=== PATIENT | male | born 1990 | race Caucasian/White ===

== ENCOUNTER 2020-11-16 16:45 | Emergency (ER) | payer MEDICAID ==
[2020-11-16 17:25] LABS: BASOPHILS % (AUTO) 0.4 %; EOSINOPHILS % (AUTO) 0.1 %; HCT - HEMATOCRIT 45.4 % (42.0-52.0); HGB - HEMOGLOBIN 15.1 g/dL (14.0-18.0); LYMPHOCYTES % (AUTO) 12.8 %; MEAN CORPUSCULAR HEMOGLOBIN 29.4 pg (27.0-31.0); MEAN CORPUSCULAR HGB CONC 33.3 g/dL (32.0-36.0); MEAN CORPUSCULAR VOLUME 88.5 fL (80.0-94.0); MEAN PLATELET VOLUME 8.8 fL (7.4-11.4); MONOCYTES # (AUTO) 0.6 10^3/uL (0.0-1.0); MONOCYTES % (AUTO) 7.9 %; NEUTROPHILS # (AUTO) 5.9 10^3/uL (1.5-6.6); NEUTROPHILS % (AUTO) 78.4 %; PLT - PLATELET COUNT 348 10^3/uL (130-450); RED BLOOD COUNT 5.13 10^6/uL (4.70-6.10); RED CELL DISTRIBUTION WIDTH 12.2 % (12.0-15.0); WHITE BLOOD COUNT 7.5 x10^3/uL (4.8-10.8)
[2020-11-16 17:32] LABS: INR 1.3 (0.8-1.2); PT - PROTHROMBIN TIME 14.4 secs (9.9-12.6)
[2020-11-16 17:40] LABS: GLUCOSE, URINE (UA) NEGATIVE (NEGATIVE); KETONES,URINE (UA) >=80 mg/dL (NEGATIVE); LEUKOCYTE ESTERASE, URINE NEGATIVE (NEGATIVE); NITRITE,URINE NEGATIVE (NEGATIVE); OCCULT BLOOD,URINE NEGATIVE (NEGATIVE); PROTEIN,URINE 30 mg/dL (NEGATIVE); UROBILINOGEN,URINE 1 (NORMAL) E.U./dL (NORMAL)
[2020-11-16 17:41] LABS: ALBUMIN 4.9 g/dL (3.2-5.5); ALBUMIN/GLOBULIN RATIO 1.4 (1.0-2.2); BILIRUBIN,TOTAL 1.3 mg/dL (0.2-1.0); CALCIUM 9.8 mg/dL (8.5-10.3); CREATININE 0.8 mg/dL (0.6-1.2); PARTIAL THROMBOPLASTIN TIME 30.5 secs (24.9-33.3); POTASSIUM 3.2 mmol/L (3.5-5.0); TOTAL PROTEIN 8.5 g/dL (6.7-8.2)
[2020-11-16 17:43] LABS: BILIRUBIN,URINE NEGATIVE (NEGATIVE); CLARITY,URINE CLEAR (CLEAR); ICTOTEST,URINE NEGATIVE
[2020-11-16] MEDS ORDERED: SODIUM CHLORIDE 0.9% 1,000 ML IV STA (17:46)
[2020-11-16 17:52] LABS: BACTERIA,URINE None Seen /HPF (None Seen); RBC,URINE 0-5 /HPF (0-5); SQUAMOUS EPITHELIAL CELL,UR NONE SEEN (<= Few); WBC,URINE 0-3 /HPF (0-3)
[2020-11-16] MEDS ORDERED: PANTOPRAZOLE 40 MG VIAL IVP STA (18:00)
[2020-11-16] MEDS ORDERED: DROPERIDOL 5 MG/2 ML VIAL IVP STA (18:00)
--- NOTE | 2020-11-16 18:07 | ED Physician Documentation ---
History of Present Illness - Stated complaint Stated Complaint: VOMITING - Chief complaint Chief Complaint: Abd Pain - History obtained from History obtained from: Patient - History of Present Illness Timing: Today Pain level max: 0 Pain level now: 0 - Additonal information Additional information: Patient is a 30-year-old male who is brought into the emergency department today for vomiting. He states this is been ongoing for several years. It is related to cannabinoid induced hyperemesis. Patient states that he quit smoking for a while and the symptoms resolved, however he began to use marijuana again and the vomiting has recurred. He states he also used to be a heavy alcoholic drinking 1/5 of vodka or more per night, now is down to a sixpack of beer or less per night. Had an EGD about 6 months ago that did not show any varices. He states that there was bright red blood in the vomit today, he states more than usual. No lightheadedness. No dizziness. Is not interested in going to rehab or detox tonight. Review of Systems Ten Systems: 10 systems reviewed and negative Constitutional: denies: Fever, Myalgias Respiratory: denies: Cough GI: reports: Nausea, Vomiting. denies: Diarrhea, Bloody / black stool Musculoskeletal: denies: Neck pain, Back pain PD PAST MEDICAL HISTORY - Past Medical History Past Medical History: Yes GI: Pancreatitis - Present Medications Home Medications: Ambulatory Orders Medication Instructions Recorded Confirmed Esomeprazole Magnesium [Nexium] 40 mg PO DAILY #30 cap 11/16/20 Insulin NPH Human Isophane 10 unit SUBQ BID 11/16/20 11/16/20 [Humulin N Kwikpen] Lipase/Protease/Amylase [Manoj Christine 3 cap ORAL TID 11/16/20 11/16/20 36,000 Units Capsule] Ondansetron Odt [Zofran] 4 mg TL Q6H PRN #10 tablet 11/16/20 - Allergies Allergies/Adverse Reactions: Allergies Allergy/AdvReac Type Severity Reaction Status Date / Time Sulfa (Sulfonamide Allergy Unknown Verified 11/16/20 16:59 Antibiotics) - Living Situation Living Arrangement: reports: At home - Social History Does the pt drink ETOH?: Yes ETOH Use: Beer Does the pt have substance abuse?: Yes Substance Use and Type: Marijuana - Family History Family history: reports: Non contributory PD ED PE NORMAL - Vitals Vital signs reviewed: Yes - General General: Alert and oriented X 3, No acute distress - HEENT HEENT: Moist mucous membranes - Neck Neck: Supple, no meningeal sign - Cardiac Cardiac: RRR - Respiratory Respiratory: No respiratory distress, Clear bilaterally - Abdomen Abdomen: Soft, Non tender, Non distended - Derm Derm: Warm and dry - Extremities Extremities: No edema, No calf tenderness / cord - Neuro Neuro: Alert and oriented X 3 - Psych Psych: Normal mood, Normal affect Results - Vitals Vitals: Vital Signs - 24 hr 11/16/20 17:00 Temperature 37.1 C Heart Rate 89 Respiratory 18 Rate Blood Pressure 139/90 H O2 Saturation 100 Oxygen O2 Source Room air - Labs Labs: Laboratory Tests 11/16/20 11/16/20 11/16/20 17:16 17:16 17:16 WBC 7.5 RBC 5.13 Hgb 15.1 Hct 45.4 MCV 88.5 MCH 29.4 MCHC 33.3 RDW 12.2 Plt Count 348 MPV 8.8 Neut # (Auto) 5.9 Lymph # (Auto) 1.0 L [place] # (Auto) 0.6 Eos # (Auto) 0.0 Baso # (Auto) 0.0 Absolute Nucleated RBC 0.00 Nucleated RBC % 0.0 PT INR APTT Sodium 139 Potassium 3.2 L Chloride 97 L Carbon Dioxide 28 Anion Gap 14.0 H BUN 10 Creatinine 0.8 Estimated GFR (MDRD) 113 Glucose 150 H Calcium 9.8 Total Bilirubin 1.3 H AST 19 ALT 23 Alkaline Phosphatase 54 Total Protein 8.5 H Albumin 4.9 Globulin 3.6 Albumin/Globulin Ratio 1.4 Lipase 19 L Urine Color Urine Clarity Urine pH Ur Specific [place] Urine Protein Urine Glucose (UA) Urine Ketones Urine Occult Blood Urine Nitrite Urine Bilirubin Urine Urobilinogen Ur Leukocyte Esterase Urine RBC Urine WBC Ur Squamous Epith Cells Urine Bacteria Ur Microscopic Review Urine Culture Comments Blood Type A POSITIVE Antibody Screen NEGATIVE 11/16/20 11/16/20 17:16 17:33 WBC RBC Hgb Hct MCV MCH MCHC RDW Plt Count MPV Neut # (Auto) Lymph # (Auto) [place] # (Auto) Eos # (Auto) Baso # (Auto) Absolute Nucleated RBC Nucleated RBC % PT 14.4 H INR 1.3 H APTT 30.5 Sodium Potassium Chloride Carbon Dioxide Anion Gap BUN Creatinine Estimated GFR (MDRD) Glucose Calcium Total Bilirubin AST ALT Alkaline Phosphatase Total Protein Albumin Globulin Albumin/Globulin Ratio Lipase Urine Color YELLOW Urine Clarity CLEAR Urine pH 6.0 Ur Specific [place] >=1.030 H Urine Protein 30 H Urine Glucose (UA) NEGATIVE Urine Ketones >=80 H Urine Occult Blood NEGATIVE Urine Nitrite NEGATIVE Urine Bilirubin NEGATIVE Urine Urobilinogen 1 (NORMAL) Ur Leukocyte Esterase NEGATIVE Urine RBC 0-5 Urine WBC 0-3 Ur Squamous Epith Cells NONE SEEN Urine Bacteria None Seen Ur Microscopic Review INDICATED Urine Culture Comments NOT INDICATED Blood Type Antibody Screen PD MEDICAL DECISION MAKING - ED course Complexity details: reviewed results, re-evaluated patient, considered differential, d/w patient ED course: Patient with what appears to be cannabinoid induced hyperemesis. Chronic ongoing issue for the patient. Had a recent EGD without evidence of varices. No further vomiting or bleeding here. Hemoglobin is 15. We will place the patient on antiemetics and Nexium for home. He was given Protonix, droperidol and IV fluids here. Abdomen is soft, nontender nondistended on serial exam. Patient counseled regarding signs and symptoms for which I believe and urgent re-evaluation would be necessary. Patient with good understanding of and agreement to plan and is comfortable going home at this time This document was made in part using voice recognition software. While efforts are made to proofread this document, sound alike and grammatical errors may occur. Departure - Departure Disposition: 01 Home, Self Care Clinical Impression: Cannabinoid hyperemesis syndrome, Dehydration Hematemesis Qualifiers: Nausea presence: with nausea Qualified Code(s): K92.0 - Hematemesis Condition: Good Instructions: ED Dehydration, ED Nausea Vomiting Follow-Up: your,doctor in 1 week [Other] Prescriptions: Esomeprazole Magnesium [Nexium] 40 mg PO DAILY #30 cap Ondansetron Odt [Zofran] 4 mg TL Q6H PRN #10 tablet PRN Reason: Nausea / Vomiting Comments: Follow-up with your doctor for further care. Return if you worsen. Please avoid alcohol and marijuana. Drink plenty of water.
[2020-11-16] MEDS ORDERED: MAG HYDROX/AL HYDROX/SIMETH 30 ML UDC PO STA (18:33)
[2020-11-16 18:53] VITALS: BP 132/86
== END 2020-11-16 19:00 | disposition home or self-care (01) ==
LOC: ED 16:45
DX: R11.2 Nausea with vomiting, unspecified (principal); F12.90 Cannabis use, unspecified, uncomplicated; E86.0 Dehydration
CPT/HCPCS: 36415; 80053; 81001; 83690; 85025; 85610; 85730; 86850; 86900; 86901; 96361; 96374; 96375; 99283; 99284; A9270; 81003; 87086

== ENCOUNTER 2020-11-19 08:28 | Emergency (ER) | payer MEDICAID ==
[2020-11-19 08:57] LABS: BASOPHILS % (AUTO) 0.4 %; EOSINOPHILS # (AUTO) 0.1 10^3/uL (0.0-0.7); EOSINOPHILS % (AUTO) 1.1 %; HCT - HEMATOCRIT 46.9 % (42.0-52.0); LYMPHOCYTES # (AUTO) 1.2 10^3/uL (1.5-3.5); LYMPHOCYTES % (AUTO) 21.8 %; MEAN CORPUSCULAR HEMOGLOBIN 29.4 pg (27.0-31.0); MEAN CORPUSCULAR HGB CONC 34.1 g/dL (32.0-36.0); MEAN CORPUSCULAR VOLUME 86.1 fL (80.0-94.0); MEAN PLATELET VOLUME 8.5 fL (7.4-11.4); MONOCYTES # (AUTO) 0.5 10^3/uL (0.0-1.0); NEUTROPHILS # (AUTO) 3.8 10^3/uL (1.5-6.6); NEUTROPHILS % (AUTO) 67.5 %; PLT - PLATELET COUNT 330 10^3/uL (130-450); RED BLOOD COUNT 5.45 10^6/uL (4.70-6.10); RED CELL DISTRIBUTION WIDTH 11.9 % (12.0-15.0); WHITE BLOOD COUNT 5.6 x10^3/uL (4.8-10.8)
[2020-11-19 09:10] LABS: ALBUMIN 4.9 g/dL (3.2-5.5); ALBUMIN/GLOBULIN RATIO 1.4 (1.0-2.2); BILIRUBIN,TOTAL 1.4 mg/dL (0.2-1.0); CALCIUM 9.5 mg/dL (8.5-10.3); CREATININE 0.9 mg/dL (0.6-1.2); POTASSIUM 3.2 mmol/L (3.5-5.0); TOTAL PROTEIN 8.3 g/dL (6.7-8.2)
[2020-11-19] MEDS ORDERED: DROPERIDOL 5 MG/2 ML VIAL IVP STA (09:32)
[2020-11-19] MEDS ORDERED: SODIUM CHLORIDE 0.9% 1,000 ML IV STA (09:32)
--- NOTE | 2020-11-19 09:34 | ED Physician Documentation ---
History of Present Illness - Stated complaint Stated Complaint: CONSTAPATION - Chief complaint Chief Complaint: Abd Pain - History obtained from History obtained from: Patient - Additonal information Additional information: Patient comes emergency department chief complaint of ongoing nausea and vomiting with decreased stool output and no flatus for the last 2 days. Patient denies any surgical history. He has a history of diabetes and of heavy cannabis use and has been told in the past that his vomiting episodes are likely due to 1 or the other of these. Patient states that he has been taking Zofran at home for the last 3 days and also omeprazole. He has not tried any stool softeners. Patient states that he has had gastrointestinal issues for the last year and a half since Covid began and was seen a GI specialist for a while. However, he states nobody has been able to completely give him an answer as to all of his issues. Patient denies any other complaints at this time. No personal history of bowel obstruction. He denies any blood in stool or vomit. He states he is feeling a little better yesterday and was actually able to have some applesauce, but today, his nausea and vomiting seem worse again. No other complaints at this time. Review of Systems Ten Systems: 10 systems reviewed and negative Constitutional: reports: Reviewed and negative Eyes: reports: Reviewed and negative Ears: reports: Reviewed and negative Nose: reports: Reviewed and negative Throat: reports: Reviewed and negative Cardiac: reports: Reviewed and negative Respiratory: reports: Reviewed and negative GI: reports: Abdominal Pain, Nausea, Vomiting, Constipation : reports: Reviewed and negative Skin: reports: Reviewed and negative Musculoskeletal: reports: Reviewed and negative Neurologic: reports: Reviewed and negative Psychiatric: reports: Reviewed and negative Endocrine: reports: Reviewed and negative Immunocompromised: reports: Reviewed and negative PD PAST MEDICAL HISTORY - Past Medical History Past Medical History: Yes Cardiovascular: None Respiratory: Asthma Neuro: Peripheral neuropathy Endocrine/Autoimmune: Type 2 diabetes GI: Pancreatitis : None HEENT: None Psych: None Musculoskeletal: Scoliosis Derm: None - Past Surgical History Past Surgical History: No - Present Medications Home Medications: Ambulatory Orders Medication Instructions Recorded Confirmed Esomeprazole Magnesium [Nexium] 40 mg PO DAILY #30 cap 11/16/20 11/19/20 Insulin NPH Human Isophane 10 unit SUBQ BID 11/16/20 11/19/20 [Humulin N Kwikpen] Lipase/Protease/Amylase [Manoj Christine 3 cap ORAL TID 11/16/20 11/19/20 36,000 Units Capsule] Ondansetron Odt [Zofran] 4 mg TL Q6H PRN #10 tablet 11/16/20 11/19/20 Docusate Sodium 100Mg Capsule 200 mg PO DAILY PRN #12 11/19/20 [Colace 100Mg Capsule] Promethazine Supp [Phenergan Supp] 25 mg [place] BID PRN #20 supp 11/19/20 - Allergies Allergies/Adverse Reactions: Allergies Allergy/AdvReac Type Severity Reaction Status Date / Time Sulfa (Sulfonamide Allergy Unknown Verified 11/19/20 08:34 Antibiotics) - Social History Does the pt smoke?: No Smoking Status: Former smoker Does the pt drink ETOH?: Yes Does the pt have substance abuse?: Yes Substance Use and Type: Marijuana - Immunizations Immunizations are current?: No Immunizations: TDAP >10years/unknown PD ED PE NORMAL - Vitals Vital signs reviewed: Yes - General General: Alert and oriented X 3, Other (Patient appears uncomfortable but otherwise no apparent distress) - HEENT HEENT: Atraumatic, PERRL, EOMI, Moist mucous membranes - Neck Neck: Supple, no meningeal sign - Cardiac Cardiac: RRR, No murmur - Respiratory Respiratory: No respiratory distress, Clear bilaterally - Abdomen Abdomen: Soft, Non distended, Other (Mild diffuse tenderness) - Derm Derm: Normal color, Warm and dry, No rash - Extremities Extremities: No deformity, No edema, No calf tenderness / cord - Neuro Neuro: Alert and oriented X 3 - Psych Psych: Normal mood, Normal affect Results - Vitals Vitals: Vital Signs - 24 hr 11/19/20 11/19/20 11/19/20 08:35 09:03 11:08 Temperature 36.4 C L 37.1 C Heart Rate 88 65 93 Respiratory 22 14 20 Rate Blood Pressure 146/109 H 143/100 H 122/93 H O2 Saturation 100 100 99 Oxygen O2 Source Room air - Labs Labs: Laboratory Tests 11/19/20 11/19/20 08:50 08:50 WBC 5.6 RBC 5.45 Hgb 16.0 Hct 46.9 MCV 86.1 MCH 29.4 MCHC 34.1 RDW 11.9 L Plt Count 330 MPV 8.5 Neut # (Auto) 3.8 Lymph # (Auto) 1.2 L [place] # (Auto) 0.5 Eos # (Auto) 0.1 Baso # (Auto) 0.0 Absolute Nucleated RBC 0.00 Nucleated RBC % 0.0 Sodium 139 Potassium 3.2 L Chloride 97 L Carbon Dioxide 28 Anion Gap 14.0 H BUN 11 Creatinine 0.9 Estimated GFR (MDRD) 98 Glucose 148 H Calcium 9.5 Total Bilirubin 1.4 H AST 20 ALT 23 Alkaline Phosphatase 51 Total Protein 8.3 H Albumin 4.9 Globulin 3.4 Albumin/Globulin Ratio 1.4 Lipase 19 L - Rads (name of study) CT abd/pelvis Radiology: Final report received, EMP read indepedently, See rad report PD MEDICAL DECISION MAKING - ED course Complexity details: reviewed results, re-evaluated patient, considered differential, d/w patient ED course: Patient was treated symptomatically with IV fluids, droperidol, and ultimately potassium as his potassium was slightly low at 3.2. CT scan of the abdomen pelvis with contrast was ordered And found to be negative. Patient was given supplemental potassium in the emergency department and results were discussed with him. I have advised him to quit smoking marijuana to help prevent these episodes of vomiting. We have discussed the need for follow-up and the usual indications for return. Departure - Departure Disposition: 01 Home, Self Care Clinical Impression: Cyclical vomiting syndrome, Cannabis hyperemesis syndrome concurrent with and due to cannabis abuse Condition: Stable Instructions: ED Nausea Vomiting Prescriptions: Docusate Sodium 100Mg Capsule [Colace 100Mg Capsule] 200 mg PO DAILY PRN #12 PRN Reason: Constipation Promethazine Supp [Phenergan Supp] 25 mg LA BID PRN #20 supp PRN Reason: Nausea / Vomiting Comments: Your CT scan does not show any evidence of bowel obstruction or constipation. Most likely, you have not had much of a bowel movement for days because you have not really been eating. You may use the Zofran and the rectal suppositories of Phenergan to help with your nausea. They may be used together because they are unrelated. Since the Zofran has a bit of a constipating side effect, you may use the Colace for stool softening as needed. Please take sips of clear liquids throughout the day to help keep yourself hydrated. We have given you a large bag of IV fluids while you have been here, and you should continue to take the clear liquids orally at home. 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 Please also consider stopping the use of the cannabis, as this is known to have the side effect of chronic, severe vomiting episodes. Discharge Date/Time: 11/19/20 11:38
[2020-11-19] MEDS ORDERED: IOPAMIDOL-300 100 ML VIAL ONE (09:37)
[2020-11-19] MEDS ORDERED: IOPAMIDOL-300 100 ML VIAL IVP ONE (10:20)
--- NOTE | 2020-11-19 10:42 | CT Report ---
PROCEDURE: Abdomen/Pelvis W INDICATIONS: vomiting/no BM or gas CONTRAST: IV CONTRAST: Optiray 320 ml: 100 PO CONTRAST: *NO PO CONTRAST TECHNIQUE: After the administration of intravenous contrast, 5 mm thick sections acquired from the diaphragms to the symphysis. 5 mm thick coronal and sagittal reformats were acquired. For radiation dose reducti on, the following was used: automated exposure control, adjustment of mA and/or kV according to gustabo ent size. COMPARISON: None. FINDINGS: Image quality: Excellent. ABDOMEN: Lung bases: Lung bases are clear. Heart size is normal. Solid organs: Evaluation of the liver demonstrates no focal hepatic lesions. Gallbladder appears wit hin normal limits without calcified gallstones. Biliary system is non dilated. The spleen is normal in size. Pancreas enhances normally without peripancreatic fat stranding or fluid collections. No ad renal nodules. Kidneys demonstrate no hydronephrosis. Peritoneum and bowel: Stomach and small loops demonstrate normal wall thickness and caliber. The mihir endix is normal in appearance. There are a few colonic diverticula without acute diverticulitis. Ther e is mild segmental wall thickening in the sigmoid colon which may reflect a mild colitis or artifact from nondistention. No free fluid or air. Nodes and vessels: No retroperitoneal or mesenteric adenopathy by size criteria. Aorta and inferior vena cava are normal in size. Miscellaneous: No ventral hernias. PELVIS: Genitourinary: Bladder wall thickness is normal. Miscellaneous: No inguinal hernias or adenopathy. Bones: No suspicious bony lesions. No vertebral body compression fractures. IMPRESSION: 1. No evidence of bowel obstruction. 2. Mild segmental wall thickening in the sigmoid colon may reflect a mild colitis or artifact from no ndistention. Reviewed by: Iain Gonzáles MD on 11/19/2020 10:40 AM PDT Approved by: Iain Gonzáles MD on 11/19/2020 10:40 AM PDT Station ID: [id number]
[2020-11-19 11:09] VITALS: BP 122/93
== END 2020-11-19 11:38 | disposition home or self-care (01) ==
LOC: ED 08:28
DX: R11.15 Cyclical vomiting syndrome unrelated to migraine (principal); F12.10 Cannabis abuse, uncomplicated; E11.42 Type 2 diabetes mellitus with diabetic polyneuropathy; Z79.4 Long term (current) use of insulin; Z87.891 Personal history of nicotine dependence
CPT/HCPCS: 36415; 74177; 80053; 83690; 85025; 96374; 99284; Q9967

== ENCOUNTER 2020-11-26 13:04 | Emergency (ER) | payer MEDICAID ==
[2020-11-26 13:33] LABS: BASOPHILS % (AUTO) 0.4 %; EOSINOPHILS % (AUTO) 0.4 %; HCT - HEMATOCRIT 49.9 % (42.0-52.0); HGB - HEMOGLOBIN 17.7 g/dL (14.0-18.0); LYMPHOCYTES # (AUTO) 1.8 10^3/uL (1.5-3.5); LYMPHOCYTES % (AUTO) 25.3 %; MEAN CORPUSCULAR HEMOGLOBIN 29.7 pg (27.0-31.0); MEAN CORPUSCULAR HGB CONC 35.5 g/dL (32.0-36.0); MEAN CORPUSCULAR VOLUME 83.7 fL (80.0-94.0); MEAN PLATELET VOLUME 8.6 fL (7.4-11.4); MONOCYTES % (AUTO) 13.1 %; NEUTROPHILS # (AUTO) 4.4 10^3/uL (1.5-6.6); NEUTROPHILS % (AUTO) 60.5 %; PLT - PLATELET COUNT 409 10^3/uL (130-450); RED BLOOD COUNT 5.96 10^6/uL (4.70-6.10); WHITE BLOOD COUNT 7.3 x10^3/uL (4.8-10.8)
[2020-11-26 13:55] LABS: ALBUMIN 5.8 g/dL (3.2-5.5); ALBUMIN/GLOBULIN RATIO 1.8 (1.0-2.2); BILIRUBIN,TOTAL 2.6 mg/dL (0.2-1.0); CALCIUM 10.1 mg/dL (8.5-10.3); CREATININE 1.2 mg/dL (0.6-1.2)
[2020-11-26 15:47] LABS: GLUCOSE, URINE (UA) NEGATIVE (NEGATIVE); KETONES,URINE (UA) >=80 mg/dL (NEGATIVE); LEUKOCYTE ESTERASE, URINE NEGATIVE (NEGATIVE); NITRITE,URINE NEGATIVE (NEGATIVE); OCCULT BLOOD,URINE NEGATIVE (NEGATIVE); PROTEIN,URINE 100 mg/dL (NEGATIVE); UROBILINOGEN,URINE 0.2 (NORMAL) E.U./dL (NORMAL)
[2020-11-26 15:51] LABS: BILIRUBIN,URINE NEGATIVE (NEGATIVE); CLARITY,URINE CLEAR (CLEAR); ICTOTEST,URINE NEGATIVE
[2020-11-26 15:52] LABS: BACTERIA,URINE None Seen /HPF (None Seen); MUCUS,URINE Few Strands; RBC,URINE None Seen /HPF (0-5); SQUAMOUS EPITHELIAL CELL,UR NONE SEEN (<= Few); WBC,URINE 0-3 /HPF (0-3)
[2020-11-26] MEDS ORDERED: HALOPERIDOL 5 MG/ML VIAL IM STA (15:57)
--- NOTE | 2020-11-26 15:57 | ED Physician Documentation ---
PD HPI ABD PAIN - Stated complaint Stated Complaint: ABD PX, N/V - Chief complaint Chief Complaint: Abd Pain - History obtained from History obtained from: Patient, Family - Additional information Additional information: 30-year-old gentleman with history of cannabinoid hyperemesis syndrome. He has had it in the past. He also has a history of pancreatic enzyme deficiency. Third visit recently for this. Seen on the and 19 November. Last marijuana use was [address] Had a [address] on the second visit showing potential colitis. Labs notable for relatively normal CBCs, CMP's with low potassiums and increasing bilirubins. He is pain-free right now because he just vomited. States he has been vomiting which helps with the pain. Review of Systems Ten Systems: 10 systems reviewed and negative Constitutional: reports: Reviewed and negative Throat: reports: Dental pain / toothache Cardiac: reports: Reviewed and negative Respiratory: reports: Reviewed and negative PD PAST MEDICAL HISTORY - Past Medical History Past Medical History: Yes Cardiovascular: None Respiratory: Asthma Neuro: Peripheral neuropathy Endocrine/Autoimmune: Type 2 diabetes GI: Pancreatitis : None HEENT: None Psych: None Musculoskeletal: Scoliosis Derm: None - Past Surgical History Past Surgical History: No - Present Medications Home Medications: Ambulatory Orders Medication Instructions Recorded Confirmed Esomeprazole Magnesium [Nexium] 40 mg PO DAILY #30 cap 11/16/20 11/19/20 Insulin NPH Human Isophane 10 unit SUBQ BID 11/16/20 11/19/20 [Humulin N Kwikpen] Lipase/Protease/Amylase [Manoj Christine 3 cap ORAL TID 11/16/20 11/19/20 36,000 Units Capsule] Ondansetron Odt [Zofran] 4 mg TL Q6H PRN #10 tablet 11/16/20 11/19/20 Docusate Sodium 100Mg Capsule 200 mg PO DAILY PRN #12 11/19/20 [Colace 100Mg Capsule] Promethazine Supp [Phenergan Supp] 25 mg [place] BID PRN #20 supp 11/19/20 haloperidoL [Haloperidol] 0.5 tab PO Q8H PRN #10 tablet 11/26/20 - Allergies Allergies/Adverse Reactions: Allergies Allergy/AdvReac Type Severity Reaction Status Date / Time Sulfa (Sulfonamide Allergy Unknown Verified 11/26/20 13:12 Antibiotics) - Social History Does the pt smoke?: No Smoking Status: Never smoker Does the pt drink ETOH?: Yes Does the pt have substance abuse?: Yes Substance Use and Type: Marijuana - Immunizations Immunizations are current?: No Immunizations: TDAP >10years/unknown PD ED PE NORMAL - Vitals Vital signs reviewed: Yes - General General: Alert and oriented X 3, Other (Appears uncomfortable and hiccuping) - HEENT HEENT: PERRL, EOMI - Neck Neck: Supple, no meningeal sign, No bony TTP - Cardiac Cardiac: RRR, No murmur - Respiratory Respiratory: No respiratory distress, Clear bilaterally - Abdomen Abdomen: Normal bowel sounds, Soft, Non tender - Back Back: No CVA TTP, No spinal TTP - Derm Derm: Normal color, Warm and dry - Neuro Neuro: Alert and oriented X 3, Normal speech Results - Vitals Vitals: Vital Signs - 24 hr 11/26/20 11/26/20 11/26/20 13:12 16:00 18:00 Temperature 36.5 C 36.5 C 36.6 C Heart Rate 100 86 83 Respiratory 16 18 18 Rate Blood Pressure 130/98 H 157/106 H 145/105 H O2 Saturation 98 99 100 Oxygen O2 Source Room air - Labs Labs: Laboratory Tests 11/26/20 11/26/20 11/26/20 13:29 13:29 15:42 WBC 7.3 RBC 5.96 Hgb 17.7 Hct 49.9 MCV 83.7 MCH 29.7 MCHC 35.5 RDW 12.0 Plt Count 409 MPV 8.6 Neut # (Auto) 4.4 Lymph # (Auto) 1.8 [place] # (Auto) 1.0 Eos # (Auto) 0.0 Baso # (Auto) 0.0 Absolute Nucleated RBC 0.00 Nucleated RBC % 0.0 Sodium 133 L Potassium 3.0 L Chloride 85 L Carbon Dioxide 26 Anion Gap 22.0 H BUN 18 Creatinine 1.2 Estimated GFR (MDRD) 71 L Glucose 165 H Calcium 10.1 Total Bilirubin 2.6 H AST 20 ALT 23 Alkaline Phosphatase 57 Total Protein 9.0 H Albumin 5.8 H Globulin 3.2 Albumin/Globulin Ratio 1.8 Lipase 22 Urine Color YELLOW Urine Clarity CLEAR Urine pH 6.0 Ur Specific [place] >=1.030 H Urine Protein 100 H Urine Glucose (UA) NEGATIVE Urine Ketones >=80 H Urine Occult Blood NEGATIVE Urine Nitrite NEGATIVE Urine Bilirubin NEGATIVE Urine Urobilinogen 0.2 (NORMAL) Ur Leukocyte Esterase NEGATIVE Urine RBC None Seen Urine WBC 0-3 Ur Squamous Epith Cells NONE SEEN Urine Bacteria None Seen Urine Mucus Few Strands Ur Microscopic Review INDICATED Urine Culture Comments NOT INDICATED PD MEDICAL DECISION MAKING - ED course ED course: 30yo male with CHS. Returns for same. Benign belly. Note made labs, low potassium, given PO KCl, and increasing bili. RUQ sono done: sludge, 2 v small polyps, no stones or cholecystitis. Better and passed PO challenge p meds. Departure - Departure Disposition: Home, Self Care Clinical Impression: Cannabinoid hyperemesis syndrome Condition: Good Record reviewed to determine appropriate education?: Yes Instructions: ED Nausea Vomiting Follow-Up: NOAH LINN PA-C [Provider Admit Priv/Credential] - BRIANNA NEUMANN ARNP [Physician No Access] - [facility] [Provider Group] [facility] [place] [Provider Group] Prescriptions: haloperidoL [Haloperidol] 0.5 tab PO Q8H PRN #10 tablet PRN Reason: Nausea / Vomiting Comments: You do have modestly elevated liver enzymes, you do have some sludge in your gallbladder. That may be related. Nothing that would suggest you need your gallbladder addressed urgently. Route return for new or worsening symptoms. You will need follow-up with primary care, Some options are listed on this form. Also for endocrinology the, the closest is in [place], the phone number is [phone]. Discharge Date/Time: 11/26/20 18:41
[2020-11-26] MEDS ORDERED: POTASSIUM CHLORIDE 20 MEQ TABLET PO STA (16:42)
[2020-11-26] MEDS ORDERED: MAG HYDROX/AL HYDROX/SIMETH 30 ML UDC PO STA (18:25)
[2020-11-26 18:32] VITALS: BP 145/105
--- NOTE | 2020-11-26 19:16 | Ultrasound Report ---
PROCEDURE: Abdomen Limited INDICATIONS: abd pain, increase liver enzymes TECHNIQUE: Real-time focused scanning was performed of the abdomen, with image documentation. COMPARISON: None FINDINGS: Liver: The liver measures 14.8 cm in length. Echotexture is normal. A possible echogenic focus in the left lobe of the liver is likely a hemangioma measuring 14 x 9 x 7 mm. Gallbladder: There is sludge. 2 small nonmobile echogenic foci are seen, possibly small polyps. Biliary tree: Common bile duct measures 3.9 mm Pancreas: Not well seen. Right kidney: 11.2 cm in length. No hydronephrosis. IMPRESSION: 1. Gallbladder sludge. 2. 2 benign-appearing gallbladder polyps. 3. Hepatic hemangioma. 4. No acute abnormality. Reviewed by: Eddy Mcdaniel on 11/26/2020 7:15 PM PDT Approved by: Eddy Mcdaniel on 11/26/2020 7:15 PM PDT Station ID: [id number]
== END 2020-11-26 18:41 | disposition home or self-care (01) ==
LOC: ED 13:04
DX: R11.10 Vomiting, unspecified (principal); E11.42 Type 2 diabetes mellitus with diabetic polyneuropathy; Z79.4 Long term (current) use of insulin
CPT/HCPCS: 36415; 76705; 80053; 81001; 83690; 85025; 96372; 99283; 99284; A9270; 81003; 87086

== ENCOUNTER 2021-03-16 08:00 | Outpatient (CLI) | payer MEDICAID ==
--- NOTE | 2021-03-16 17:49 | XRAY Report ---
PROCEDURE: Ankle 3 View LT INDICATIONS: ANKLE PAIN, LEFT TECHNIQUE: 3 views of the ankle were acquired. COMPARISON: None FINDINGS: Bones: No fractures or dislocations. Ankle mortise is normally aligned. No suspicious bony lesions . The talar dome demonstrates an unremarkable appearance. Soft tissues: No tibiotalar joint effusion. Achilles tendon appears normal. Calcification can be s een of the distal arteries, which is commonly observed in patients with long-standing diabetes, which is consistent with the known history. IMPRESSION: No acute plain film abnormality is seen. Reviewed by: Regis Cheatham MD on 03/16/2021 4:47 PM [facility] Approved by: Regis Cheatham MD on 03/16/2021 4:47 PM [facility] Station ID: [id number]
== END 2021-03-16 23:59 | disposition home or self-care (01) ==
LOC: DI.S 08:00
PROVIDERS: ATTEND Physician Assistant Medical
DX: M25.572 Pain in left ankle and joints of left foot (principal)

== ENCOUNTER 2021-05-11 11:17 | Outpatient (CLI) | payer MEDICAID ==
[2021-05-11 15:43] LABS: BASOPHILS % (AUTO) 0.4 %; EOSINOPHILS # (AUTO) 0.2 10^3/uL (0.0-0.7); EOSINOPHILS % (AUTO) 3.8 %; HCT - HEMATOCRIT 45.3 % (42.0-52.0); HGB - HEMOGLOBIN 15.4 g/dL (14.0-18.0); LYMPHOCYTES # (AUTO) 1.5 10^3/uL (1.5-3.5); LYMPHOCYTES % (AUTO) 31.6 %; MEAN CORPUSCULAR HEMOGLOBIN 29.1 pg (27.0-31.0); MEAN CORPUSCULAR VOLUME 85.6 fL (80.0-94.0); MEAN PLATELET VOLUME 9.3 fL (7.4-11.4); MONOCYTES # (AUTO) 0.5 10^3/uL (0.0-1.0); MONOCYTES % (AUTO) 9.5 %; NEUTROPHILS # (AUTO) 2.6 10^3/uL (1.5-6.6); NEUTROPHILS % (AUTO) 54.5 %; PLT - PLATELET COUNT 370 10^3/uL (130-450); RED BLOOD COUNT 5.29 10^6/uL (4.70-6.10); RED CELL DISTRIBUTION WIDTH 12.3 % (12.0-15.0); WHITE BLOOD COUNT 4.7 x10^3/uL (4.8-10.8)
[2021-05-11 15:59] LABS: ALBUMIN 4.5 g/dL (3.2-5.5); ALBUMIN/GLOBULIN RATIO 1.2 (1.0-2.2); ALKALINE PHOSPHATASE 66 IU/L (42-121); ALT ALANINE AMINOTRANSFERASE 28 IU/L (10-60); AST ASPARTATE AMINOTRANSFERASE 22 IU/L (10-42); BILIRUBIN,TOTAL 0.7 mg/dL (0.2-1.0); BUN - BLOOD UREA NITROGEN 15 mg/dL (6-20); CALCIUM 9.4 mg/dL (8.5-10.3); CARBON DIOXIDE - CO2 26 mmol/L (21-32); CHLORIDE 103 mmol/L (101-111); CHOLESTEROL 173 mg/dL; CREATININE 0.7 mg/dL (0.6-1.2); GFR - MDRD 131 (>89); GLUCOSE 197 mg/dL (70-100); HDL CHOLESTEROL 43 mg/dL; LDL CHOLESTEROL,CALCULATED 118 mg/dL; LDL/HDL RATIO 2.7 (<3.6); SODIUM 138 mmol/L (135-145); TOTAL PROTEIN 8.4 g/dL (6.7-8.2); TRIGLYCERIDES 59 mg/dL; VLDL CHOLESTEROL 12 mg/dL
[2021-05-11 21:04] LABS: ESTIMATED AVERAGE GLUCOSE 192 mg/dL (70-100); HEMOGLOBIN A1c% 8.3 % (4.27-6.07)
== END 2021-05-11 11:18 | disposition home or self-care (01) ==
LOC: LAB.S 11:17
PROVIDERS: ATTEND Internal Medicine
DX: E11.9 Type 2 diabetes mellitus without complications (principal)
CPT/HCPCS: 36415; 80053; 80061; 83036; 83721; 85025

== ENCOUNTER 2022-04-01 11:44 | Outpatient (CLI) | payer MEDICAID ==
[2022-04-01 14:41] LABS: BASOPHILS % (AUTO) 0.7 %; EOSINOPHILS # (AUTO) 0.2 10^3/uL (0.0-0.7); EOSINOPHILS % (AUTO) 3.7 %; LYMPHOCYTES # (AUTO) 1.7 10^3/uL (1.5-3.5); LYMPHOCYTES % (AUTO) 27.9 %; MEAN CORPUSCULAR HEMOGLOBIN 28.9 pg (27.0-31.0); MEAN CORPUSCULAR HGB CONC 32.7 g/dL (32.0-36.0); MEAN CORPUSCULAR VOLUME 88.4 fL (80.0-94.0); MEAN PLATELET VOLUME 9.5 fL (7.4-11.4); MONOCYTES # (AUTO) 0.6 10^3/uL (0.0-1.0); MONOCYTES % (AUTO) 10.1 %; NEUTROPHILS # (AUTO) 3.5 10^3/uL (1.5-6.6); NEUTROPHILS % (AUTO) 57.3 %; PLT - PLATELET COUNT 338 10^3/uL (130-450); RED BLOOD COUNT 5.54 10^6/uL (4.70-6.10)
[2022-04-01 15:18] LABS: CALCIUM 9.3 mg/dL (8.5-10.3); CREATININE 0.9 mg/dL (0.6-1.2); POTASSIUM 4.7 mmol/L (3.5-5.0)
[2022-04-01 19:46] LABS: ESTIMATED AVERAGE GLUCOSE 243 mg/dL (70-100); HEMOGLOBIN A1c% 10.1 % (4.27-6.07)
== END 2022-04-01 11:45 | disposition home or self-care (01) ==
LOC: LAB.S 11:44
PROVIDERS: ATTEND Emergency Medicine
DX: E11.9 Type 2 diabetes mellitus without complications (principal)
CPT/HCPCS: 36415; 80048; 82043; 82570; 83036; 85025

== ENCOUNTER 2022-12-21 19:22 | Outpatient (CLI) | payer MEDICAID | END 2022-12-21 23:59 | disposition EMS.NT | LOC: EMS 19:22 | DX: R11.2 Nausea with vomiting, unspecified (principal); K92.0 Hematemesis; R10.13 Epigastric pain; R42 Dizziness and giddiness ==

== ENCOUNTER 2022-12-23 12:09 | Emergency (ER) | payer MEDICAID ==
[2022-12-23 12:22] VITALS: O2SAT 100
[2022-12-23] MEDS ORDERED: DROPERIDOL 5 MG/2 ML VIAL IVP STA (12:33)
[2022-12-23] MEDS ORDERED: SODIUM CHLORIDE 0.9% 1,000 ML IV STA ×2 (12:34→13:51)
--- NOTE | 2022-12-23 12:36 | ED Physician Documentation ---
History of Present Illness - Stated complaint Stated Complaint: VOMITING - Chief complaint Chief Complaint: Abd Pain - Additonal information Additional information: 32-year-old male who has a history of type 2 insulin-dependent diabetes presents to the emergency department for 3 days of uncontrolled nausea and vomiting. States he has been unable to keep even simple liquids down. He has a sore throat and some chest pain from persistent vomiting. Denies any diarrhea or urinary symptoms. He does take Levemir 20 units nightly as well as NovoLog 1 unit per 10 g of carbs. Sugars been higher at home than they typically would be in the 180s to the 250s. Patient does admit to daily cannabis use. States he has been told he has cannabis hyperemesis in the past and feels that this may be his cause of symptoms today. Review of Systems Constitutional: denies: Fever, Chills Cardiac: denies: Chest pain / pressure, Palpitations Respiratory: denies: Dyspnea, Cough GI: reports: Nausea, Vomiting. denies: Abdominal Pain, Diarrhea : reports: Reviewed and negative Skin: reports: Reviewed and negative Musculoskeletal: reports: Reviewed and negative Neurologic: reports: Reviewed and negative Psychiatric: reports: Reviewed and negative PD PAST MEDICAL HISTORY - Past Medical History Cardiovascular: None Respiratory: Asthma Neuro: Peripheral neuropathy Endocrine/Autoimmune: Type 2 diabetes GI: Pancreatitis : None HEENT: None Psych: None Musculoskeletal: Scoliosis Derm: None - Past Surgical History Past Surgical History: No - Present Medications Home Medications: Ambulatory Orders Medication Instructions Recorded Confirmed Insulin NPH Human Isophane 20 unit SUBQ BID 11/16/20 11/19/20 [Humulin N Kwikpen] Lipase/Protease/Amylase [Manoj Christine 3 cap ORAL TID 11/16/20 11/19/20 36,000 Units Capsule] Ondansetron Odt [Zofran] 4 mg TL Q6H PRN #10 tablet 12/23/22 - Allergies Allergies/Adverse Reactions: Allergies Allergy/AdvReac Type Severity Reaction Status Date / Time Sulfa (Sulfonamide Allergy Unknown Verified 12/23/22 12:15 Antibiotics) - Social History Does the pt smoke?: No Smoking Status: Never smoker Does the pt drink ETOH?: Yes Does the pt have substance abuse?: Yes - Immunizations Immunizations are current?: No Immunizations: TDAP >10years/unknown PD ED PE NORMAL - General General: Alert and oriented X 3, No acute distress - HEENT HEENT: PERRL - Cardiac Cardiac: No murmur - Respiratory Respiratory: No respiratory distress, Clear bilaterally - Abdomen Abdomen: Normal bowel sounds, Soft, Non tender - Back Back: No CVA TTP - Derm Derm: Normal color, Warm and dry, No rash - Extremities Extremities: No deformity - Neuro Neuro: Alert and oriented X 3, surveillance operator 2-12 intact Eye Opening: Spontaneous Motor: Obeys Commands Verbal: Oriented GCS Score: 15 Results - Vitals Vitals: Vital Signs - 24 hr 12/23/22 12:15 Temperature 36.3 C L Heart Rate 98 Respiratory 20 Rate Blood Pressure 127/90 H O2 Saturation 100 Oxygen O2 Source Room air - Labs Labs: Laboratory Tests 12/23/22 12/23/22 12/23/22 12:19 12:40 12:40 WBC 11.3 H RBC 5.70 Hgb 16.6 Hct 48.6 MCV 85.3 MCH 29.1 MCHC 34.2 RDW 12.7 Plt Count 380 MPV 9.2 Neut # (Auto) 9.1 H Lymph # (Auto) 1.0 L Charlton # (Auto) 1.1 H Eos # (Auto) 0.0 Baso # (Auto) 0.0 Absolute Nucleated RBC 0.00 Nucleated RBC % 0.0 VBG pH VBG pCO2 VBG pO2 VBG HCO3 VBG Total CO2 VBG O2 Saturation VBG Base Excess Sodium 135 Potassium 3.2 L Chloride 89 L Carbon Dioxide 28 Anion Gap 18.0 H BUN 17 Creatinine 1.1 Estimated GFR (MDRD) 77 L Glucose 260 H POC Whole Bld Glucose 277 H Lactic Acid Calcium 10.7 H Total Bilirubin 1.3 H AST 14 ALT 18 Alkaline Phosphatase 73 Total Protein 8.4 Albumin 5.1 Globulin 3.3 Albumin/Globulin Ratio 1.5 Lipase < 11 L Serum Ketones SMALL H 12/23/22 12/23/22 12:40 12:40 WBC RBC Hgb Hct MCV MCH MCHC RDW Plt Count MPV Neut # (Auto) Lymph # (Auto) Charlton # (Auto) Eos # (Auto) Baso # (Auto) Absolute Nucleated RBC Nucleated RBC % VBG pH 7.469 H VBG pCO2 38.4 L VBG pO2 31.5 VBG HCO3 27.3 VBG Total CO2 28.4 VBG O2 Saturation 64.9 VBG Base Excess 3.6 H Sodium Potassium Chloride Carbon Dioxide Anion Gap BUN Creatinine Estimated GFR (MDRD) Glucose POC Whole Bld Glucose Lactic Acid 1.7 Calcium Total Bilirubin AST ALT Alkaline Phosphatase Total Protein Albumin Globulin Albumin/Globulin Ratio Lipase Serum Ketones - Rads (name of study) cxr Relevant Findings:: Final report received (No acute cardiopulmonary process) PD Medical Decision Making - ED course Complexity details: reviewed results, re-evaluated patient, considered differential, d/w patient ED course: 32-year-old male who is an insulin-dependent type 2 diabetic presents emergency department for evaluation of nausea and vomiting for the last 3 days. He does endorse cannabis use and has stated that he is been diagnosed with cannabis hyperemesis in the past. On presentation he is alert and well-appearing. No abdominal tenderness was elicited on exam. We did obtain a CBC and electrolytes. Per my interpretation there is mild leukocytosis of 11.3 thousand. No anemia. VBG did not show any findings of acidosis. pH is 7.46. Chemistry reveals mild hypokalemia with potassium of 3.2. This was repleted in the ER. His gap was 18. Lactic acid was not elevated. His total calcium was 10.7. Pt did receive 2 liters of IVF in the ED. Lipase was not elevated. He did have some small serum ketones. UA negative for infection. CXR negative for infiltrates Given the lack of acidosis I do not believe he has DKA. I believe the ketones are a result of uncontrolled vomiting over the last 3 days. Because he did endorse cannabis use I administered him 2.5 mg of droperidol IV and on reevaluation the nausea and vomiting had resolved. He is now tolerating sips of clear liquids. I discussed with patient etiology and management of cannabinoid hyperemesis. Given the lack of abdominal tenderness I have low suspicion for occult surgical abdomen and therefore deferred imaging. Inaddition no LFT abnormalities to suggest choley. Patient was comfortable with a prescription of Zofran and discharged home to follow closely with his PCP. The usual emergent return precautions were discussed for worsening symptoms. Departure - Departure Disposition: 01 Home, Self Care Clinical Impression: Nausea and vomiting Qualifiers: Vomiting type: unspecified Qualified Code(s): R11.2 - Nausea with vomiting, unspecified Condition: Stable Record reviewed to determine appropriate education?: Yes Prescriptions: Ondansetron Odt [Zofran] 4 mg TL Q6H PRN #10 tablet PRN Reason: Nausea / Vomiting Comments: You are seen today in the emergency department for 3 days of vomiting. I suspect that you have vomiting due to cannabis use. I recommend that you abstain from cannabis for at least several weeks or months. A prescription for Zofran, nausea medicine, has been sent to the [facility] in [place]. I recommend over the next 24 to 48 hours simple sips of clear liquids followed by bananas, rice, applesauce and toast. If you find that you have uncontrolled nausea and vomiting despite this medication then you should return to the ER. Forms: PCP List
[2022-12-23 12:51] LABS: BASOPHILS % (AUTO) 0.1 %; HCT - HEMATOCRIT 48.6 % (42.0-52.0); HGB - HEMOGLOBIN 16.6 g/dL (14.0-18.0); LYMPHOCYTES % (AUTO) 8.9 %; MEAN CORPUSCULAR HEMOGLOBIN 29.1 pg (27.0-31.0); MEAN CORPUSCULAR HGB CONC 34.2 g/dL (32.0-36.0); MEAN CORPUSCULAR VOLUME 85.3 fL (80.0-94.0); MEAN PLATELET VOLUME 9.2 fL (7.4-11.4); MONOCYTES # (AUTO) 1.1 10^3/uL (0.0-1.0); MONOCYTES % (AUTO) 9.7 %; NEUTROPHILS # (AUTO) 9.1 10^3/uL (1.5-6.6); NEUTROPHILS % (AUTO) 80.9 %; PLT - PLATELET COUNT 380 10^3/uL (130-450); RED CELL DISTRIBUTION WIDTH 12.7 % (12.0-15.0); VBG BASE EXCESS 3.6 mmol/L (-2 - +2); VBG HCO3 27.3 mmol/L (23-28); VBG OXYGEN SATURATION 64.9 % (60-80); VBG PCO2 38.4 mmHg (41-51); VBG PH 7.469 (7.31-7.41); VBG PO2 31.5 mmHg (25-47); VBG TOTAL CO2 28.4 mmol/L (24-29); WHITE BLOOD COUNT 11.3 x10^3/uL (4.8-10.8)
[2022-12-23 13:02] LABS: ALBUMIN 5.1 g/dL (3.2-5.5)
[2022-12-23 13:07] LABS: ALBUMIN/GLOBULIN RATIO 1.5 (1.0-2.2); ALKALINE PHOSPHATASE 73 IU/L (42-121); ALT ALANINE AMINOTRANSFERASE 18 IU/L (10-60); AST ASPARTATE AMINOTRANSFERASE 14 IU/L (10-42); BILIRUBIN,TOTAL 1.3 mg/dL (0.2-1.0); BUN - BLOOD UREA NITROGEN 17 mg/dL (6-20); CALCIUM 10.7 mg/dL (8.5-10.3); CARBON DIOXIDE - CO2 28 mmol/L (21-32); CHLORIDE 89 mmol/L (101-111); CREATININE 1.1 mg/dL (0.6-1.3); GFR - MDRD 77 (>89); GLUCOSE 260 mg/dL (74-104); POTASSIUM 3.2 mmol/L (3.5-4.5); SODIUM 135 mmol/L (135-145); TOTAL PROTEIN 8.4 g/dL (6.4-8.9)
[2022-12-23 13:08] LABS: LIPASE < 11 U/L (11-82)
[2022-12-23 13:19] LABS: KETONES, SERUM (ACETEST) SMALL (NEGATIVE)
--- NOTE | 2022-12-23 13:35 | XRAY Report ---
PROCEDURE: Chest 1 View X-Ray INDICATIONS: chest pain TECHNIQUE: One view of the chest was acquired. COMPARISON: None. FINDINGS: Surgical changes and devices: None. Lungs and pleura: No pleural effusions or pneumothorax. Lungs are clear. Mediastinum: Mediastinal contours appear normal. Heart size is normal. Bones and chest wall: No suspicious bony lesions. Overlying soft tissues appear unremarkable. IMPRESSION: No acute cardiopulmonary process. Reviewed by: Duane Mancini MD on 12/23/2022 12:34 PM AKMARYSOL Approved by: Duane Mancini MD on 12/23/2022 12:34 PM AKDT Station ID: [id number]
[2022-12-23] MEDS ORDERED: INSULIN REGULAR HUMAN 300 UNIT/3 ML VIAL IVP STA (13:45)
[2022-12-23] MEDS ORDERED: POTASSIUM BICARB 25 MEQ TABLET PO STA (13:46)
[2022-12-23] MEDS ORDERED: MAG HYDROX/AL HYDROX/SIMETH 30 ML UDC PO STA (13:50)
[2022-12-23] MEDS ORDERED: PANTOPRAZOLE 40 MG VIAL IVP STA (13:50)
[2022-12-23] MEDS ORDERED: POTASSIUM CHLORIDE 20 MEQ TABLET PO STA (14:47)
[2022-12-23 14:57] LABS: GLUCOSE, URINE (UA) 100 mg/dL (NEGATIVE); KETONES,URINE (UA) >=80 mg/dL (NEGATIVE); LEUKOCYTE ESTERASE, URINE NEGATIVE (NEGATIVE); NITRITE,URINE NEGATIVE (NEGATIVE); OCCULT BLOOD,URINE SMALL (NEGATIVE); PH,URINE 5.5 PH (5.0-7.5); PROTEIN,URINE 30 mg/dL (NEGATIVE); UROBILINOGEN,URINE 0.2 (NORMAL) E.U./dL (NORMAL)
[2022-12-23 15:07] LABS: BILIRUBIN,URINE NEGATIVE (NEGATIVE); CLARITY,URINE CLEAR (CLEAR); ICTOTEST,URINE NEGATIVE
[2022-12-23 15:12] VITALS: BP 144/96
[2022-12-23 15:22] LABS: BACTERIA,URINE None Seen /HPF (None Seen); RBC,URINE 0-5 /HPF (0-5); SQUAMOUS EPITHELIAL CELL,UR NONE SEEN (<= Few); WBC,URINE 0-3 /HPF (0-3)
== END 2022-12-23 15:25 | disposition home or self-care (01) ==
LOC: ED 12:09
DX: R11.2 Nausea with vomiting, unspecified (principal); E11.42 Type 2 diabetes mellitus with diabetic polyneuropathy; Z79.4 Long term (current) use of insulin
CPT/HCPCS: 36415; 71045; 80053; 81001; 82009; 82803; 83605; 83690; 85025; 96361; 96374; 96375; 99284; A9270; J1815; 81003; 87086

== ENCOUNTER 2023-08-24 18:36 | Emergency (ER) | payer MEDICAID ==
[2023-08-24 18:50] VITALS: BP 156/94; O2SAT 100
--- NOTE | 2023-08-24 19:19 | ED Physician Documentation ---
History of Present Illness - Stated complaint Stated Complaint: MED REFILL - Chief complaint Chief Complaint: General - History obtained from History obtained from: Patient - Additonal information Additional information: He has longstanding diabetes and is on insulin. He is close to running out of his insulin and his doctor will not refill until he gets seen which is a month out. He feels okay. CGM currently reading 260. PD PAST MEDICAL HISTORY - Past Medical History Cardiovascular: None Respiratory: Asthma Neuro: Peripheral neuropathy Endocrine/Autoimmune: Type 2 diabetes GI: Pancreatitis : None HEENT: None Psych: None Musculoskeletal: Scoliosis Derm: None - Past Surgical History Past Surgical History: No - Present Medications Home Medications: Ambulatory Orders Medication Instructions Recorded Confirmed Lipase/Protease/Amylase [Manoj Christine 3 cap ORAL TID 11/16/20 08/24/23 36,000 Units Capsule] Ondansetron Odt [Zofran] 4 mg TL Q6H PRN #10 tablet 12/23/22 08/24/23 Insulin Aspart [NovoLOG] 1 unit SUBQ DAILY 08/24/23 08/24/23 Insulin Aspart [Novolog Flexpen] See Rx Instructions .ROUTE 08/24/23 .COMPLEX #10 ea Insulin Glargine [Lantus Solostar] 30 unit SUBQ DAILY 08/24/23 08/24/23 Insulin Glargine [Lantus Solostar] 30 unit SUBQ DAILY #5 ea 08/24/23 Pen Needle, Diabetic [Comfort 1 each MC QID #120 ea 08/24/23 Touch Pen Needle] - Allergies Allergies/Adverse Reactions: Allergies Allergy/AdvReac Type Severity Reaction Status Date / Time Sulfa (Sulfonamide Allergy Unknown Verified 08/24/23 18:49 Antibiotics) - Social History Does the pt smoke?: No Smoking Status: Never smoker Does the pt drink ETOH?: Yes Does the pt have substance abuse?: Yes - Immunizations Immunizations are current?: No Immunizations: TDAP >10years/unknown PD ED PE NORMAL - Vitals Vital signs reviewed: Yes - General General: Alert and oriented X 3, No acute distress - Derm Derm: No rash - Neuro Neuro: Alert and oriented X 3 Results - Vitals Vitals: Vital Signs - 24 hr 08/24/23 18:44 Temperature 36.1 C L Heart Rate 85 Respiratory 16 Rate Blood Pressure 156/94 H O2 Saturation 100 Oxygen O2 Source Room air PD Medical Decision Making - ED course ED course: 33-year-old gentleman with diabetes presents requesting insulin refill until he can get in with his doctor. Clearly this is not unreasonable. 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 Return for any worsening symptoms. Follow-up with your doctor as scheduled. Forms: PCP List Discharge Date/Time: 08/24/23 19:42
== END 2023-08-24 19:42 | disposition home or self-care (01) ==
LOC: ED 18:36
DX: Z76.0 Encounter for issue of repeat prescription (principal); E11.65 Type 2 diabetes mellitus with hyperglycemia; E11.42 Type 2 diabetes mellitus with diabetic polyneuropathy; Z79.4 Long term (current) use of insulin
CPT/HCPCS: 99281; 99283